=== PATIENT | female | born 1985 | race Caucasian/White ===

== ENCOUNTER 2022-05-30 16:00 | Outpatient (CLI) | payer BC, SELFPAY | END 2022-05-30 16:01 | disposition home or self-care (01) | PROVIDERS: Visit Provider Registered Nurse | DX: Z01.419 Encounter for gynecological examination (general) (routine) without abnormal findings (principal); Z12.4 Encounter for screening for malignant neoplasm of cervix; Z13.29 Encounter for screening for other suspected endocrine disorder | CPT/HCPCS: 84443; 87624; 88175 ==

== ENCOUNTER 2022-07-27 12:47 | Outpatient (CLI) | payer BC, SELFPAY ==
[2022-07-29 14:47] LABS: Estradiol Premenol Female 194 pg/mL
[2022-07-29 19:03] LABS: Follicle Stimulating Hormone 2.8 IU/L
[2022-07-31 15:43] LABS: Progesterone, HPLC-MS/MS 24.53 ng/mL
== END 2022-07-27 12:48 | disposition home or self-care (01) ==
PROVIDERS: Visit Provider Registered Nurse
DX: Z31.69 Encounter for other general counseling and advice on procreation (principal); Z31.41 Encounter for fertility testing
CPT/HCPCS: 82670; 83001; 84144

== ENCOUNTER 2022-08-04 09:55 | Outpatient (CLI) | payer BC, SELFPAY ==
[2022-08-05 12:56] LABS: Estradiol Premenol Female 20 pg/mL
[2022-08-06 14:50] LABS: Follicle Stimulating Hormone 8.7 IU/L
[2022-08-06 17:35] LABS: HCG Qualitative Serum* Negative (Negative)
== END 2022-08-04 09:56 | disposition home or self-care (01) ==
PROVIDERS: PCP Family Medicine; Visit Provider Registered Nurse
DX: Z31.41 Encounter for fertility testing (principal)
CPT/HCPCS: 36415; 82670; 83001; 84703

== ENCOUNTER 2022-08-08 09:49 | Outpatient (CLI) | payer BC, SELFPAY ==
--- NOTE | 2022-08-08 10:15 | CRLHL7_ITS ---
For Patients: As a result of the Century Cures Act, medical imaging exams and procedure reports are released immediately into your electronic medical record. You may view this report before your referring provider. If you have questions, please contact your health care provider. Indication: infertility testing Technique: Routine hysterosalpingogram performed. Fluoroscopic time 26 seconds. IMPRESSION: Normal patency of the endometrial canal and fallopian tubes with spillage into the peritoneum. Dictated by Jame Salas MD @ 08/08/2022 11:40:22 AM (Electronically Signed)
--- NOTE | 2022-08-08 11:27 | W.PM.GYNPROC ---
Procedure Note Time Seen by Provider: 10:30 Date Seen: 08/08/22 Procedure Details: PREPROCEDURE DIAGNOSIS: Infertility. POSTPROCEDURE DIAGNOSIS: 1. Infertility. 2. Patent fallopian tubes bilaterally. NAME OF PROCEDURE: Hysterosalpingogram. SURGEON: Per. ANESTHESIA: None. COMPLICATIONS: None. PROCEDURE: After obtaining verbal consent, the patient was placed in the dorsal lithotomy position on the x-ray table. An open-sided bivalve speculum was introduced into the vagina and the cervix visualized with some difficulty, as the cervix was posterior and deflected to the patient's left. The cervix and vagina were then prepped with Betadine. The anterior lip of the cervix was grasped with a single-tooth tenaculum for traction. I attempted to place a balloon tipped double-lumen catheter through the cervical opening, but could not get it past the internal cervical os. I then tried using an os finder to cannulate the internal cervical os, and this was unsuccessful. Finally, I used a set of tiny cervical dilators, and was still unable to dilate to the internal cervical os. I reinserted the catheter into the cervix and inflated the balloon with 3 mL of air. It held in place. The tenaculum and speculum were removed. The patient was repositioned in the supine position, covered, and the radiologist was called to the room. A hysterosalpingogram was then performed. A total of 10 cc of water soluble contrast dye was injected through the double-lumen catheter under moderate pressure. There was immediate fill of the uterine cavity to the cornua and immediate fill of both fallopian tubes with spillage into the pelvis on both sides. The balloon was deflated. The catheter was removed. The patient tolerated the procedure well, though she did have moderate cramping discomfort during and just after the procedure. She was discharged to home in stable condition and to follow up as needed [facility] the [facility] as directed.
== END 2022-08-08 09:50 | disposition home or self-care (01) ==
LOC: RAD 09:49
PROVIDERS: PCP Family Medicine; Visit Provider Registered Nurse
DX: Z31.41 Encounter for fertility testing (principal); Z31.69 Encounter for other general counseling and advice on procreation
CPT/HCPCS: 58340; 74740; A4649; Q9967

== ENCOUNTER 2022-08-23 07:37 | Outpatient (CLI) | payer OTHER, SELFPAY ==
[2022-08-24 22:55] LABS: Anti-Mullerian Hormone 6.767 ng/mL (0.176-11.705)
== END 2022-08-23 07:38 | disposition home or self-care (01) ==
LOC: NFLDREF 07:38
PROVIDERS: PCP Family Medicine; Visit Provider Registered Nurse
DX: Z31.9 Encounter for procreative management, unspecified (principal)
CPT/HCPCS: 83520

== ENCOUNTER 2022-10-18 07:50 | Outpatient (CLI) | payer OTHER, SELFPAY | END 2022-10-18 07:51 | disposition home or self-care (01) | PROVIDERS: PCP Family Medicine; Visit Provider Registered Nurse | DX: N97.9 Female infertility, unspecified (principal) | CPT/HCPCS: 84144 ==

== ENCOUNTER 2024-11-02 07:28 | Outpatient (CLI) | payer OTHER, SELFPAY ==
--- NOTE | 2024-11-02 07:45 | CRLHL7_ITS ---
For Patients: As a result of the Cures Act, medical imaging exams and procedure reports are released immediately into your electronic medical record. You may view this report before your referring provider. If you have questions, please contact your health care provider. DIGITAL DIAGNOSTIC BILATERAL MAMMOGRAM USING TOMOSYNTHESIS AND COMPUTER-AIDED DETECTION RIGHT BREAST ULTRASOUND CLINICAL HISTORY: RIGHT breast lump. COMPARISON: None. TECHNIQUE: Digital BILATERAL mammogram in four projections with computer-aided detection. Tomosynthesis was used in this interpretation. Real-time ultrasound imaging of RIGHT breast with imaging documentation. BREAST COMPOSITION: The breasts are extremely dense, which lowers the sensitivity of mammography. FINDINGS: 3D CC/MLO BILATERAL mammogram images submitted. No architectural distortion or suspicious mass. No adenopathy or suspicious calcifications. Targeted RIGHT breast ultrasound performed 11 o`clock 6 cm from the nipple. In this location, there is a simple circumscribed anechoic cyst with increased through-transmission measuring 2.2 x 2.4 x 2.3 cm. No internal vascularity. IMPRESSION: Simple cyst RIGHT breast 11 o`clock 6 cm from the nipple measuring 2.4 cm. No suspicious findings. No evidence of malignancy. RECOMMENDATIONS: Age-appropriate screening mammography. A lay language report of this examination will be provided to the patient. BI-RADS Category 2: Benign Dictated by Jame Salas MD @ 11/02/2024 8:39:11 AM jj/Dictated by: Jame Salas MD @ 11/02/2024 8:39:00 AM (Electronically Signed)
--- NOTE | 2024-11-02 08:15 | CRLHL7_ITS ---
For Patients: As a result of the Cures Act, medical imaging exams and procedure reports are released immediately into your electronic medical record. You may view this report before your referring provider. If you have questions, please contact your health care provider. SEE DIGITAL DIAGNOSTIC BILATERAL MAMMOGRAM PERFORMED SAME DAY CRL:[email or web address] [email or web address]/Dictated by: Jame Salas MD @ 11/02/2024 8:39:00 AM (Electronically Signed)
== END 2024-11-02 07:29 | disposition home or self-care (01) ==
LOC: MAMMO 07:29
PROVIDERS: PCP Family Medicine; Visit Provider Physician Assistant
DX: N63.11 Unspecified lump in the right breast, upper outer quadrant (principal); N60.01 Solitary cyst of right breast
CPT/HCPCS: 76642; 77066; G0279

== ENCOUNTER 2025-04-15 10:51 | Outpatient (CLI) | payer OTHER, SELFPAY | END 2025-04-15 10:52 | disposition home or self-care (01) | LOC: NFLDREF 10:52 | PROVIDERS: PCP Family Medicine; Visit Provider Obstetrics & Gynecology | DX: N39.0 Urinary tract infection, site not specified (principal) | CPT/HCPCS: 87086 ==

== ENCOUNTER 2025-07-28 07:29 | Outpatient (CLI) | payer OTHER, SELFPAY | END 2025-07-28 07:30 | disposition home or self-care (01) | LOC: NFLDREF 08-02 18:47 | PROVIDERS: PCP Family Medicine; Referring Provider Family Medicine; Visit Provider Registered Nurse | DX: Z13.9 Encounter for screening, unspecified (principal) | CPT/HCPCS: 80061; 82947 ==